=== PATIENT | male | born 1980 | race Caucasian/White ===

== ENCOUNTER 2020-04-23 09:23 | Emergency (ER) | payer OTHER, SELFPAY ==
[2020-04-23] VITALS (20 sets, daily range): BP systolic 98–158; BP diastolic 48–101; PULSE 81–116; RESP 12–29; TEMP 36.8; O2SAT 90–100
--- NOTE | ~2020-04-23 | XR_ITS ---
EXAMINATION: XR chest 1V portable EXAM DATE: 04/23/2020 10:26 INDICATION: Chest pain, vomiting. TECHNIQUE: Portable AP frontal chest x-ray was obtained. Comparison is made to prior examination from 07/06/2013. FINDINGS: The lungs are clear. There are no pleural effusions. The cardiomediastinal silhouette is within normal limits. There is no pneumothorax suspected. The bones and soft tissues are unremarkab le. IMPRESSION: No acute cardiopulmonary findings. Reviewed, dictated and finalized at location A. [employer]
--- NOTE | ~2020-04-23 | CT_ITS ---
EXAMINATION: CT abdomen pelvis w con DATE: 04/23/2020 14:57 INDICATION: Epigastric pain. Nausea and vomiting. Confusion. TECHNIQUE: Computed tomography (CT) of the abdomen and pelvis was performed with 100 cc Omnipaque 350 intravenous contrast. The dose-length product was 612.03 mGy-cm. Automated exposure control and iter ative reconstruction technique were employed. COMPARISON: CT dated 09/02/2018 FINDINGS: Dependent atelectasis. Heart size normal. No significant pleural or pericardial effusion. N o significant vascular abnormality. No lymphadenopathy. Small fat-containing umbilical hernia. Fatty infiltration of the liver. Gallbladder is contracted. The spleen, pancreas, adrenal glands and kidneys are unremarkable. There is mild thickening of the proximal small bowel which may be due to un derdistention, although enteritis is not excluded. Nonobstructive bowel gas pattern. No free air or f ree fluid. IMPRESSION: 1. Mild thickening of the proximal small bowel which may be due to underdistention, although enteriti s is not excluded. No obstruction. Reviewed, dictated and finalized at location A. SFORMER MAKER IMPRESSION: 1. Mild thickening of the proximal small bowel which may be due to underdistent ion, although enteritis is not excluded. No obstruction.
--- NOTE | ~2020-04-23 | CT_ITS ---
EXAMINATION: CT BRAIN W/O DATE: 04/23/2020 14:57 INDICATION: Altered mental status TECHNIQUE: Computed tomography (CT) of the head was performed without intravenous contrast. The dose- length product was 908.00 mGy-cm. COMPARISON: No prior studies for comparison. FINDINGS: Normal brain parenchymal volume for age. Normal sabillon-white differentiation. No acute intrac ranial hemorrhage, infarction, mass or mass effect. No ventriculomegaly or midline shift. Midline sagittal images demonstrate a normal corpus callosum, c raniovertebral junction and sella turcica. Basilar cisterns are patent. Paranasal sinuses and mastoids are pneumatized. No depressed skull fractures. IMPRESSION: 1. No acute intracranial abnormality. Reviewed, dictated and finalized at location A. [employer]
--- NOTE | 2020-04-23 09:27 | ECG_ITS ---
Measurements Intervals [place] Rate: 92 P: 43 DE: 148 QRS: 43 QRSD: 97 T: 32 QT: 346 QTc: 429 Interpretive Statements SINUS RHYTHM WITH MARKED SINUS ARRHYTHMIA DELAYED PRECORDIAL R/S TRANSITION ST ELEVATION IN ANTEROLATERAL LEADS- PROBABLY EARLY REPOLARIZATION BORDERLINE ECG Electronically Signed On 04-23-2020 13:24:08 [employer] by Darrel Sanders D.O.
[2020-04-23] MEDS: ONDANSETRON INJ 4 MG/2 ML VIAL IV PUSH ×2 (09:56→11:56)
[2020-04-23 09:58] LABS: Alveolar/Arterial O2 Gradient 18.2 mmHg; Base Excess ABG 0.3 mEq/l (+/-2.0); Carboxyhemoglobin 0.4 % THb (0-2.0); Fractional Inspired Oxygen 21 %; HCO3 ABG 15.5 mEq/l (22.0-26.0); Methemoglobin ABG 0.4 %THb (0-1.5); Oxygen Content ABG 24.3 %vol (16.0-22.0); Oxyhemoglobin 97.9 % THb (90.0-100.0); PO2 ABG 115.8 mmHg (80.0-100.0); PO2 FiO2 Ratio Arterial Blood 5.51 %; Reduced Hemoglobin 1.3 %THb (0-5.0); Total Hemoglobin 17.6 g/dL (12.0-18.0)
[2020-04-23] MEDS: LORazepam INJ (*CRX) 2 MG/ML VIAL 1 MG IV PUSH (09:58)
[2020-04-23] MEDS: LACTATED RINGERS 1,000 ML 999 ML IV CONT (09:58)
[2020-04-23 09:59] LABS: Device ROOM AIR; Modified Allen's Test Pass; PCO2 ABG 13.1 mmHg (35.0-45.0); Site Drawn LEFT RADIAL; pH ABG 7.692 (7.350-7.450)
--- NOTE | 2020-04-23 10:14 | ED.GENADULT ---
HPI - General Adult General Chief complaint: Anxiety Stated complaint: SEVERE ABD AND CHEST PAIN Time Seen by Provider: 04/23/20 09:29 Source: patient and family Mode of arrival: ambulatory Limitations: no limitations History of Present Illness HPI narrative: This patient is a 39 year old male who presents for evaluation of nausea and vomiting. His family at bedside states patient has been dealing with alot of anxiety over the past 2 days. Last night he developed severe nausea and vomiting with left abdominal pain. He is extremely restless at bedside so he is poor historian. He reports midsternal chest pain but reports his worse symptom is left abdominal pain. He admits to drinking alcohol heavily and he may have decreased his intake recently. He also reports forgetfulness. His family member reports he is not acting like himself Related Data Home Medications Medication Instructions Recorded Confirmed Tylenol 04/23/20 tramadol mg 04/23/20 Allergies Allergy/AdvReac Type Severity Reaction Status Date / Time meloxicam Allergy Severe Jittery Verified 09/02/18 10:56 venom-honey bee Allergy Intermediate Unknown Verified 04/23/20 10:18 naproxen [From Aleve] AdvReac Unknown Verified 04/23/20 10:18 Review of Systems Review of Systems: All systems reviewed & are unremarkable except as noted in HPI and below Constitutional: Constitutional: Denies chills, Reports fatigue and Denies fever(s) Cardiovascular: Cardiovascular: Reports chest pain and Denies radiating jaw, neck or arm pain Respiratory: Respiratory: Denies cough and Denies dyspnea Gastrointestinal: Gastrointestinal: Reports abdominal pain, Reports nausea and Reports vomiting [facility] Past Medical History Medical History (Updated 04/23/20 @ 15:53 by Monica Hamm MD) Chronic back pain Social History Social History (Updated 04/23/20 @ 10:17 by Monica Hamm MD) Alcohol intake: current Substance use: never Exam Const: General: alert; No diaphoretic Orientation/consciousness: patient oriented x3 Other: restless HENMT: Head: normocephalic and atraumatic Face and sinus: face symmetric Eyes: Pupils: Equal, round and reactive pupils present EOM: EOMs intact bilaterally Resp: Effort & Inspection: normal respiratory effort and no retractions Auscultation: clear to auscultation bilaterally Cardio: Rate: tachycardic Rhythm: regular rhythm GI: GI Palp: No Soft to palpation, No Tenderness to palpation present (GI), No Guarding due to palpation present (GI) and No Rigid due to palpation Auscultation: normal bowel sounds Skin: General skin exam: normal color Rashes: no rashes Neuro: General: patient oriented x3 and moves all extremities Psych: Affect: Anxious affect present Course Reevaluation(s) Reevaluation #1: PAtient denies any abdominal pain, currently. He still has nausea. Date: 04/23/20 Time: 11:33 Reevaluation #2: PAtient reports he is developing abdominal pain and nausea again. He was able to eat and drink without vomiting. He and girlfriend now deny heavy alcohol use. I asked if he needed resources for alcohol as he could be suffering withdrawal since he has not drank for 2 days. Date: 04/23/20 Time: 15:49 Vital Signs Vital signs: Vital Signs Temperature 98.2 F 04/23/20 10:08 Pulse Rate 112 H 04/23/20 10:08 Respiratory Rate 29 H 04/23/20 10:08 Blood Pressure 158/101 H 04/23/20 10:08 Pulse Oximetry 100 04/23/20 10:08 Temperature 98.2 F 04/23/20 10:08 Pulse Rate 84 04/23/20 16:15 Respiratory Rate 16 04/23/20 16:15 Blood Pressure 130/75 04/23/20 16:15 Pulse Oximetry 95 04/23/20 16:15 Medical Decision Making Vital Signs Vital Signs: Vital Signs Temperature 98.2 F 04/23/20 10:08 Pulse Rate 112 H 04/23/20 10:08 Respiratory Rate 29 H 04/23/20 10:08 Blood Pressure 158/101 H 04/23/20 10:08 Pulse Oximetry 100 04/23/20 10:08 Temperature 98.2 F 04/23/20
[2020-04-23] MEDS: THIAMINE HCL INJ 100 MG, FOLIC ACID INJ 1 MG, MULTIVITAMINS-12 INJ VIAL 1 5 ML, MULTIVI... IV CONT (10:30)
[2020-04-23 10:31] LABS: Basophils Percent Auto 0.3 % (0.2-1.2); Hematocrit 51.8 % (42.0-52.0); Hemoglobin 17.9 g/dL (14.0-18.0); Immature Granulocyte Absolute 0.04 K/mm3 (0.00-0.031); Immature Granulocyte Percent A 0.4 % (0-0.5); Lymphocytes Absolute Auto 0.91 K/mm3 (0.9-3.2); Lymphocytes Percent Auto 9.2 % (18.3-44.2); Mean Corpuscular HGB Conc 34.6 g/dl (32-36); Mean Corpuscular Hemoglobin 29.7 pg (26-34); Mean Corpuscular Volume 85.9 fl (80-100); Mean Platelet Volume 9.5 fl (7.4-10.4); Monocytes Absolute Auto 0.7 K/mm3 (0.1-0.6); Monocytes Percent Auto 7.4 % (2.6-8.5); Neutrophils Absolute Auto 8.2 K/mm3 (1.3-6.7); Neutrophils Percent Auto 82.7 % (45.5-73.1); Platelet Count Result 316 k/mm3 (150-375); Red Blood Count 6.03 M/mm3 (4.6-6.20); Red Cell Distribution Width 12.7 % (11.5-14.5); White Blood Count 9.9 K/mm3 (4.5-10.0)
[2020-04-23 10:42] LABS: Partial Thromboplastin Time 23.2 SECONDS (22.3-36.8)
[2020-04-23 10:46] LABS: Alanine Aminotransferase 41 U/L (4-50); Albumin Level 5.1 g/dL (3.5-5.1); Alkaline Phosphatase 93 U/L (38-126); Anion Gap 20 mmol/L (8-16); Aspartate Amino Transferase 36 U/L (17-59); Bilirubin,Total 1.1 mg/dL (0.2-1.3); Blood Urea Nitrogen 12 mg/dL (9-20); Calcium 10.2 mg/dL (8.4-10.2); Carbon Dioxide 20 mmol/L (22-30); Chloride 97 mmol/L (98-107); Estimated CRCL calculation 92 ml/min; Estimated Glomerular Filt Rate > 60; Glucose 109 mg/dL (75-110); Lactic Acid Reflex 2.9 mmol/L (0.7-2.1); Lipase 115 U/L (23-300); Magnesium 2.1 mg/dL (1.6-2.3); Potassium 3.4 mmol/L (3.4-5.0); Sodium 137 mmol/L (137-145)
[2020-04-23 10:47] LABS: Ethanol < 10 mg/dL (<10)
[2020-04-23 10:55] LABS: Troponin I < 0.012 ng/mL (0.000-0.034)
--- NOTE | 2020-04-23 11:07 | PC.NURSE ---
Pt appears to be sleeping restlessly on the stretcher. Turning head with eyes closed. Pt's s.o. states he is not feeling better, but pt appears less anxious. Per s.o. pt has not slept since yesterday.
[2020-04-23 11:33] LABS: Amphetamine Screen Urine Negative (Negative); Barbiturate Screen Urine Negative (Negative); Benzodiazepines Screen Urine Negative (Negative); Cannabinoid Screen Urine Positive (Negative); Cocaine Screen Urine Negative (Negative); Methadone Screen Urine Negative (Negative); Opiate Screen Urine Negative (Negative); Phencyclidine Screen Urine Negative (Negative)
[2020-04-23] MEDS: PANTOPRAZOLE SODIUM IV 40 MG VIAL IV PUSH (11:55)
[2020-04-23 12:05] LABS: Thyroid Stimulating Hormone Reflex 0.652 uIU/mL (0.465-4.68)
[2020-04-23 13:06] LABS: Add Urine Microscopic? YES; Appearance Urine Clear (Clear); Bilirubin Urine Negative (Negative); Blood Urine Negative (Negative); Color Urine Yellow (Yellow); Glucose Urine UA Negative (Negative); Ketones Urine 2+ mg/dL (Negative); Leukocyte Esterase Ur Negative LEU/UL (Negative); Mucus Urine Rare /lpf; Nitrate Urine Negative (Negative); Protein Urine 2+ mg/dL (Negative); RBC Urine 0-2 /hpf (0-2); Urobilinogen Urine Negative mg/dL (<2.0); WBC Urine 0-3 /hpf
[2020-04-23 13:28] LABS: Reflex Lactic Acid Yes or No Add Lactic
[2020-04-23 14:02] LABS: Lactic Acid 0.9 mmol/L (0.7-2.1)
[2020-04-23] MEDS: PROMETHAZINE HCL 25 MG/ML AMPUL 12.5 MG IV PUSH (14:23)
--- NOTE | 2020-04-23 14:27 | PC.NURSE ---
Pt awake, requesting water. Note soda and juice at bedside, pt states that the fluids are making him nauseated. Med given ivp for continued nausea.
[2020-04-23] MEDS: traMADol HCL (*CRX) 50 MG TABLET 100 MG PO (16:05)
== END 2020-04-23 16:21 | disposition home or self-care (01) ==
PROVIDERS: Emergency Provider General Practice; PCP Family Medicine
DX: F41.9 Anxiety disorder, unspecified (principal); R11.2 Nausea with vomiting, unspecified; R10.9 Unspecified abdominal pain; R94.31 Abnormal electrocardiogram [ECG] [EKG]
CPT/HCPCS: 36415; 36600; 70450; 71045; 74177; 80053; 80307; 81001; 82375; 82805; 83050; 83605; 83690; 83735; 84443; 84484; 85025; 85610; 85730; 93005; 96361; 96365; 96366; 96375; 96376; 99284; A9270; C9113; J2060; J2405; J2550; J3411; J3475; J7030; J7120; Q9967

== ENCOUNTER 2024-07-14 15:33 | Emergency (ER) | payer SELFPAY ==
--- NOTE | 2024-07-14 15:35 | ED_ITS ---
HPI - Ear Problem General Chief complaint: Ear Stated complaint: Ear Pain Time Seen by Provider: 07/14/24 15:35 Source: patient Mode of arrival: ambulatory Limitations: no limitations History of Present Illness HPI Narrative: Patient is a 43-year-old male who presents with severe ear pain. Reports pain is worse on the right than the left. States he has had upper respiratory symptoms for 1 week and has been using [id number] calm flu medicine along with Neti pot rinses. States today his fever broke but on the way home from town the ear pain started to sharp. Denies any chills, nausea, vomiting, diarrh eaGayla CARTER Complaint: ear pain Related Data Home Medications ?Medication ?Instructions ?Recorded ?Confirmed ?Last Taken ?Type Tylenol 04/23/20 Unknown History tramadol 50 mg tablet mg 04/23/20 Unknown History Allergies Allergy/AdvReac Type Severity Reaction Status Date / Time meloxicam Allergy Severe Jittery Verified 07/14/24 15:48 venom-honey bee Allergy Intermediate Unknown Verified 04/23/20 10:18 naproxen (From Aleve) AdvReac Unknown Verified 04/23/20 10:18 Review of Systems Review of Systems: All systems reviewed & are unremarkable except as noted in HPI and below Constitutional: Constitutional: Denies body ache(s), Denies chills, Denies fever(s), Denies headache(s) and Denies malaise Eyes: Eyes: Denies blurry vision, Denies eye discharge and Denies irritation ENT: Reports otalgia, Denies headache(s), Denies nasal congestion, Denies nasal discharge and Denies sore throat Cardiovascular: Cardiovascular: Denies chest pain, Denies edema, Denies palpitations and Denies dyspnea on exertion Respiratory: Respiratory: Denies cough and Denies dyspnea on exertion Gastrointestinal: Gastrointestinal: Denies abdominal pain, Denies diarrhea, Denies nausea and Denies vomiting Musculoskeletal: Musculoskeletal: Denies back pain, Denies arthralgias and Denies muscle weakness Integumentary/Breasts: Skin/Breast: Denies pruritus and Denies rash Neurologic: Denies headache(s) Psychiatric: Psychiatric: Reports no additional psychiatric complaints Endocrine: Endocrine: Denies palpitations PMFSH Past Medical History Medical History Chronic back pain Social History Social History Alcohol intake: current Substance use: never Comments At time of signature, agree with nursing past medical, surgical, social and family history. There is no relevant family history pertinent to the presenting complaint? Exam Const: General: cooperative, healthy appearing, no acute distress and well nourished Nutritional Appearance: well nourished Orientation/consciousness: patient oriented x3 Limitations: no limitations HENMT: Head: normal to inspection, normocephalic and atraumatic Ears: hearing grossly normal bilaterally, EAC's normal, no periauricular adenopathy and TM abnormal bulging bilateral and erythematous bilateral Face/Nose/Sinus: Normal external nose present, Normal nares present, Normal nasal mucous membranes and turbinates present, No nasal discharge present, normal facial exam and sinuses nontender Face and sinus: normal facial exam and sinuses nontender Mouth: Yes Normal oral and palatal mucosa present, Yes lip normal, Yes tongue normal and Yes moist mucous membranes Throat: posterior oropharynx normal, tonsils normal and uvula midline Eyes: General: appearance normal, both eyes and all related structures Alignment and Position: alignment normal and position normal Eyelids: eyelids normal Pupils: Equal, round and reactive pupils present EOM: EOMs intact bilaterally Neck: Neck: normal visual inspection, full ROM, no lymphadenopathy and supple Chest: Chest palpation & inspection: normal inspection of the chest Resp: Effort & Inspection: normal respiratory effort and able to speak in complete sentences Auscultation: clear to auscultation bilaterally, no crackles, no rales, no rhonchi and no wheezes Cardio: Rate: tachycardic Rhythm: regular rhythm Heart sounds: S1 normal heart sound present and S2 normal heart sound present Skin: General skin exam: normal color and no rashes or lesions noted Neuro: General: patient oriented x3 and moves all extremities Cranial nerves: Yes Equal, round and reactive pupils present Cognition (Neuro): normal cognition Speech: normal speech Gait exam (Neuro): Normal gait present Extrem: General: normal to inspection and full ROM Psych: Appearance: grossly normal and well kempt Mental Status: mental status grossly normal Speech and movement: Normal speech and movement present Course Course Emergency Course: Patient is aware of diagnosis, understands and agrees to treatment plan.? Anticipatory guidance given.? Patient agrees to follow-up as directed and is aware of reasons to seek care at the emergency department.? Portions of this record may have been created with voice recognition software? Level of Care: Express Care Visit Vital Signs Vital signs: Vital Signs Temperature 35.5 C L 07/14/24 15:42 Pulse Rate 115 H 07/14/24 15:42 Respiratory Rate 16 07/14/24 15:42 Blood Pressure 160/110 H 07/14/24 15:42 Pulse Oximetry 97 07/14/24 15:42 Temperature 35.5 C L 07/14/24 15:42 Pulse Rate 115 H 07/14/24 15:42 Respiratory Rate 16 07/14/24 15:42 Blood Pressure 160/110 H 07/14/24 15:42 Pulse Oximetry 97 07/14/24 15:42 Reviewed Medical Decision Making MDM Narrative Medical decision making narrative: Patient given Ibuprofen for pain. Reports mild relief. No reactions. Pt well hydrated appearing, in no respiratory distress, hemodynamically stable. Recommend supportive care. The patient is stable at time of discharge the clinical impression was discussed and the patient was given the opportunity to ask questions, which were addressed as completely as possible given the information available at present. Anticipatory guidance and return to care precautions were discussed and the importance of primary care follow-up was stressed and encouraged. The patient voiced understanding of the plan, ind ications to return, and the need for follow-up. Exam findings show no acute concerns or changes Patient is appropriate for outpatient treatment and follow-up. Differential diagnosis considered: Gonzales virus, strep pharyngitis, allergic rhinitis, upper respiratory tract infection, sinusitis, rhinosinusitis, nasopharyngitis. viral pharyngitis, otitis media, otitis externa, otitis effusion, foreign body, cerumen impaction, viral syndrome, and influenza.? Medical Records Medical records reviewed: Yes I reviewed the external patient's medical records. Vital Signs Vital Signs: Vital Signs Temperature 35.5 C L 07/14/24 15:42 Pulse Rate 115 H 07/14/24 15:42 Respiratory Rate 16 07/14/24 15:42 Blood Pressure 160/110 H 07/14/24 15:42 Pulse Oximetry 97 07/14/24 15:42 Temperature 35.5 C L 07/14/24 15:42 Pulse Rate 115 H 07/14/24 15:42 Respiratory Rate 16 07/14/24 15:42 Blood Pressure 160/110 H 07/14/24 15:42 Pulse Oximetry 97 07/14/24 15:42 Discharge Plan Discharge Clinical Impression: Otitis media Qualifiers: Otitis media type: suppurative Chronicity: acute Laterality: bilateral Recurrence: non-recurrent Spontaneous tympanic membrane rupture: without spontaneous rupture Qualified Code(s): H66.003 - Acute suppurative otitis media without spontaneous rupture of ear drum, bilateral Patient Disposition: Home, Self-Care Condition: Stable Instructions: Ear Infection (ED) Additional Instructions: Take antibiotics as directed. Recommend antihistamine such as Benadryl at night time and Zyrtec or Iram during the day until symptoms improve Flonase nasal spray, 1 spray in each nostril once daily until symptoms improve Also, recommend symptomatic treatment includes: rest, fluids, and increase humidity of the air at home. For pain, you may take: Tylenol 650-1000mg by mouth every 4-6 hours. Do not exceed 4000mg in 24 hours. Advil (Ibuprofen) 600 mg by mouth every 6 hours. Do not exceed 2400mg in 24 hours. 8 AM: Tylenol 11 AM: Ibuprofen 2 PM: Tylenol 5 PM: Ibuprofen 8 PM: Tylenol 11 PM: Ibuprofen 2 AM: Tylenol 5 AM: Ibuprofen Please schedule a follow-up visit with your personal physician for further evaluation and treatment within 3-5days. If your symptoms persist, change or worsen significantly before you can contact your personal physician then please, without delay, go to the emergency department for further evaluation. Your blood pressure was elevated above 120/80 today at Urgent Care. This puts you above the threshold for follow up visit with a primary care provider. High blood pressure does not usually cause any symptoms, however it may lead to kidney failure, stroke, heart disease just to name a few if untreated . Many people are anxious when seeing a provider or nurse. As a result, you are not diagnosed with hypertension at this time unless your blood pressure is persistently high at two office visits at least one week apart. Some things that can help lower blood pressure are lifestyle modifications, such as light exercise, decreased salt in diet, and weight loss. It is important to follow up with a PCP about this within 1 week. Patient Language: Slovenian Prescriptions: New amoxicillin 875 mg tablet 875 mg PO Q12H 7 Days Qty: 14 0RF No Action tramadol 50 mg tablet Tylenol ondansetron HCl [Zofran] 4 mg tablet 4 mg PO Q6H PRN (Reason: nausea and vomiting) Qty: 14 0RF lorazepam [Ativan] 1 mg tablet 1 mg PO BID PRN (Reason: anxiety) Qty: 14 0RF Follow-up/Referrals: Tera Morejon MD [Physician] - 3 Days (Establish care) Stand Alone Forms: Work/School Release IP Time of Disposition: 16:04
[2024-07-14 15:42] VITALS: BP 160/110; PULSE 115; RESP 16; TEMP 35.5; O2SAT 97
[2024-07-14] MEDS: IBUPROFEN 600 MG TABLET PO (15:56)
== END 2024-07-14 16:12 | disposition home or self-care (01) ==
PROVIDERS: Emergency Provider Nurse Practitioner Family
DX: H66.003 Acute suppurative otitis media without spontaneous rupture of ear drum, bilateral (principal)
CPT/HCPCS: 99213; A9270; G0463